=== PATIENT | male | born 1985 | race African-American/Black ===

== ENCOUNTER 2016-08-26 11:03 | Emergency (ER) | payer MEDICAID ==
[~2016-08-26] VITALS: Ht 167.6 cm; Wt 74.8 kg
[2016-08-26 11:08] VITALS: BP 125/77
--- NOTE | 2016-08-26 11:15 | NUR ---
PT BIB [facility] FOR B[facility]ARRE BEHAVIOR. PT DISORIENTED AND DOES NOT MAKE SENSE. STATES HE IS ON A "72 HOUR FAST TO SEE GOD". UNCOOPERATIVE WITH STAFF INSTRUCTION BUT NON-VIOLENT. DENIES SI/HI. DENIES PHYSICAL COMPLAINTS. AMBULATORY WITH STEADY GAIT. RESP EVEN UNLABORED. SKIN WARM NONDIAPHORETIC. IN ER BED 15 ON TIANNA WRIST RESTRAINTS FOR SAFETY.
--- NOTE | 2016-08-26 11:53 | NUR ---
PT REFUSING BLOOD DRAW, STATES "IF YOU DRAW MY BLOOD I WILL [facility]". NOTIFIED.
[2016-08-26] MEDS ORDERED: HALOPERIDOL LACTATE INJ 5 MG/ML VIAL ONE ×2 (11:56→12:37)
[2016-08-26] MEDS ORDERED: diphenhydrAMINE HCL 50 MG/ML VIAL ONE (11:56)
[2016-08-26] MEDS ORDERED: LORAZEPAM INJ 2 MG/ML VIAL ONE ×2 (11:57→12:38)
[2016-08-26] MEDS ORDERED: LORAZEPAM INJ 2 MG/ML VIAL IM ONE (12:00)
[2016-08-26] MEDS ORDERED: diphenhydrAMINE HCL 50 MG/ML VIAL IM ONE (12:00)
[2016-08-26] MEDS ORDERED: HALOPERIDOL LACTATE INJ 5 MG/ML VIAL IM ONE (12:00)
--- NOTE | 2016-08-26 12:16 | NUR ---
PT NOW A/OX4 BUT STATES "I'VE BEEN FASTING FOR 72 HOURS TO SEE GOD". AT THIS TIME PT CONSENTS TO BLOOD DRAW, WITNESSED BY [employer] OFFICER MAILE. Addendum: 08/26/16 at 1256 by HFOX ATIVAN 2MG, BENADRYL 50MG, AND HALDOL 5MG WERE DRAWN UP TO BE ADMINISTERED. GIVEN PT'S ORIENTATION, MEDICATION TO BE HELD. MEDS WASTED IN PYXIS.
--- NOTE | 2016-08-26 12:29 | NUR ---
[employer] LAYUP LINE BACK FEEDER AT BEDSIDE. PT NOW REFUSES BLOOD DRAW DESPITE EDUCATION ON BENEFITS AND RISKS
--- NOTE | 2016-08-26 12:37 | NUR ---
PT NOW YELLING "YOU ARE THE JOSSELIN AND I WILL EAT THE APPLE. IF YOU ARE NOT GAUTAM KESHA, YOU CAN'T TOUCH ME WITH ANYTHING". PINKY HERE FOR PSYCH EVAL AND HEARD PT YELLING. NOTIFIED DR WESLEY.
--- NOTE | 2016-08-26 12:50 | NUR ---
VERBAL ORDER TO ADMINISTER HALDOL 5MG AND ATIVAN 2MG IM AT THIS TIME. OK PER MD TO HOLD BENADRYL 50MG. WHEN I WENT TO MEDICATE PT, HE CONSENTED TO PROVIDE URINE AND BLOOD.
--- NOTE | 2016-08-26 12:54 | NUR ---
PT WAS TAKEN OFF 1 RESTRAINT TO USE URINAL. PT WAS ABLE TO SELF-EXTRICATE FROM REMAINING WRIST RESTRAINT AND RAN FROM ER SCREAMING. MULTIPLE STAFF AND SECURITY ATTEMPTED TO STOP PT BUT WERE UNABLE TO STOP HIM. NOTIFIED.
--- NOTE | 2016-08-26 12:55 | NUR ---
HALDOL AND ATIVAN WASTED.
== END 2016-08-26 13:06 | disposition left against medical advice (07) ==
LOC: ER 11:06
DX: F29 Unspecified psychosis not due to a substance or known physiological condition (principal)
CPT/HCPCS: A4606; J1200; J1630; J2060; Z7610

== ENCOUNTER 2017-09-07 23:00 | Emergency (ER) | payer MEDICAID, OTHER ==
[~2017-09-07] VITALS: Ht 180.3 cm; Wt 80.3 kg
[2017-09-07 23:02] VITALS: BP 128/78
[2017-09-07] MEDS ORDERED: ACETAMINOPHEN ES 500 MG TABLET ONE (23:28)
[2017-09-07] MEDS ORDERED: ACETAMINOPHEN ES 500 MG TABLET PO ONE (23:30)
== END 2017-09-07 23:34 | disposition home or self-care (01) ==
LOC: ER 23:01
DX: Z02.89 Encounter for other administrative examinations (principal); S16.1XXA Strain of muscle, fascia and tendon at neck level, initial encounter; X39.8XXA Other exposure to forces of nature, initial encounter; Y93.89 Activity, other specified; Y92.89 Other specified places as the place of occurrence of the external cause; Y99.8 Other external cause status
CPT/HCPCS: 99283; A4606; Z7610

== ENCOUNTER 2018-07-22 17:35 | Emergency (ER) | payer OTHER ==
[~2018-07-22] VITALS: Ht 154.9 cm; Wt 79.4 kg
[2018-07-22 17:41] VITALS: BP 134/71
== END 2018-07-22 18:28 ==
LOC: ER 17:38
DX: Z02.89 Encounter for other administrative examinations (principal); M54.5 Low back pain; R06.02 Shortness of breath